=== PATIENT | female | born 1955 | race African-American/Black ===

== ENCOUNTER 2021-09-26 12:02 | Emergency (ER) | payer OTHER ==
[2021-09-26 12:59] LABS: BASO % 0.7 % (0-2.0); HEMATOCRIT 38.6 % (32.4-45.2); HEMOGLOBIN 12.7 GM/dL (10.7-15.3); LYMPH % 38.8 % (8-40); MCH 30.6 pg (25.7-33.7); MEAN CELL VOLUME 92.8 fl (80-96); MEAN PLT VOLUME 7.5 fl (7.5-11.1); MONO % 10.2 % (3.8-10.2); NEUT % 45.3 % (42.8-82.8); PLATELET COUNT 227 10^3/uL (134-434); RBC 4.15 M/mm3 (3.60-5.2); RDW 13.9 % (11.6-15.6); WHITE BLOOD COUNT 3.8 K/mm3 (4.0-10.0)
[2021-09-26 13:07] LABS: INR 1.21 (0.83-1.09); PROTHROMBIN TIME (PATIENT) 13.9 SEC (9.7-13.0)
[2021-09-26 13:10] LABS: ACTIVATED PTT 32.2 SECONDS (25.2-36.5)
[2021-09-26 13:14] VITALS: TEMP 98.2; BMI 29.8
[2021-09-26 13:19] LABS: CHLORIDE 109 mmol/L (98-107); SODIUM 137 mmol/L (136-145)
[2021-09-26 13:21] LABS: ALBUMIN 3.7 g/dl (3.4-5.0); BLOOD UREA NITROGEN 14.6 mg/dL (7-18); CALCIUM 9.9 mg/dL (8.5-10.1); CO2 26 mmol/L (21-32); GLUCOSE,RANDOM 88 mg/dL (74-106)
[2021-09-26 13:24] LABS: SGOT/AST 53 U/L (15-37); SGPT/ALT 27 U/L (13-61)
[2021-09-26 13:26] LABS: BILIRUBIN,TOTAL 0.7 mg/dL (0.2-1); TOT PROT 7.8 g/dl (6.4-8.2)
[2021-09-26 13:27] LABS: ALK PHOS 58 U/L (45-117)
[2021-09-26 13:37] LABS: ANION GAP 3 MMOL/L (8-16)
[2021-09-26 16:06] LABS: CHLORIDE 110 mmol/L (98-107); SODIUM 140 mmol/L (136-145)
[2021-09-26 16:10] LABS: CALCIUM 9.9 mg/dL (8.5-10.1)
[2021-09-26 16:11] LABS: BLOOD UREA NITROGEN 13.4 mg/dL (7-18); CO2 25 mmol/L (21-32); GLUCOSE,RANDOM 85 mg/dL (74-106)
[2021-09-26 16:15] LABS: ANION GAP 5 MMOL/L (8-16)
[2021-09-26 18:46] VITALS: BP 148/75; PULSE 74
== END 2021-09-26 18:00 | disposition home or self-care (01) ==
LOC: JER 12:02
DX: R07.9 Chest pain, unspecified (principal)
CPT/HCPCS: 36415; 71046-TC-FY; 80048; 80053; 84132; 84484; 85025; 85610; 85730; 93005; 93010; 99285-25